=== PATIENT | female | born 1980 | race African-American/Black ===

== ENCOUNTER 2016-11-20 14:55 | Emergency (ER) | payer MEDICAID ==
[~2016-11-20] VITALS: Ht 154.9 cm; Wt 56.0 kg
[2016-11-20 16:28] VITALS: BP 124/76
--- NOTE | 2016-11-20 17:23 | NUR ---
PATIENT PRESENTS TO ED WITH RIGHT KNEE PAIN . PT STATES . DENIES N/V/D; SKIN IS PINK/WARM/DRY; AAOX4 WITH EVEN AND STEADY GAIT; LUNGS CLEAR BL; HR EVEN AND REGULAR; PT DENIES ANY FEVER, CP, SOB, OR COUGH AT THIS TIME; PATIENT STATES PAIN OF 10/10 AT THIS TIME; VSS; PATIENT POSITIONED FOR COMFORT; HOB ELEVATED; BEDRAILS UP X2; BED DOWN. ER MD MADE AWARE OF PT STATUS.
--- NOTE | 2016-11-20 17:23 | NUR ---
PATIENT TO ER OF1.
--- NOTE | 2016-11-20 17:35 | NUR ---
PATIENT BEING EVALUATED BY DR. GARCIA.
--- NOTE | 2016-11-20 17:45 | NUR ---
PATIENT TAKEN TO XR FOR RT. KNEE XR VIA WHEELCHAIR
--- NOTE | 2016-11-20 17:58 | NUR ---
PATIENT BACK FROM XR
--- NOTE | 2016-11-20 18:04 | NUR ---
PATIENT BEING REASSESSED BY ERMD IN OF. PATIENT AMBULATE WITH A LIMP BEING ASSESSED BY ERMD.
--- NOTE | 2016-11-20 18:23 | NUR ---
CRUTCH WALKING BY EMT.KNEE BRACE APPLIED RT. KNEE BY EMT
[2016-11-20 18:27] VITALS: BP 123/75
--- NOTE | 2016-11-20 18:27 | NUR ---
PATIENT ASSISTED VIA W/C TO HER CAR
--- NOTE | 2016-11-20 18:27 | NUR ---
Patient discharged with v/s stable. Written and verbal after care instructions given and explained. Patient alert, oriented and verbalized understanding of instructions. Ambulatory with to home. All questions addressed prior to discharge. ID band removed. Patient advised to follow up with PMD. Rx of NAPROSYN given. Patient educated on indication of medication including possible reaction and side effects. Opportunity to ask questions provided and answered.
== END 2016-11-20 18:27 | disposition home or self-care (01) ==
LOC: MED 14:55
DX: M25.561 Pain in right knee (principal)
CPT/HCPCS: 29105; 73562; 99284

== ENCOUNTER 2019-09-04 12:48 | Emergency (ER) | payer MEDICAID ==
[~2019-09-04] VITALS: Ht 154.9 cm; Wt 52.2 kg
[2019-09-04 12:49] VITALS: BP 115/78
--- NOTE | 2019-09-04 12:56 | NUR ---
Patient ambulated to bed 4. RN evaluating patient at bedside.
[2019-09-04 13:12] VITALS: BP 115/78
--- NOTE | 2019-09-04 13:13 | NUR ---
Patient discharged with v/s stable. Written and verbal after care instructions given and explained. Patient verbalized understanding. Ambulatory with steady gait. All questions addressed prior to discharge. Advised to follow up with PMD.
== END 2019-09-04 13:13 | disposition home or self-care (01) ==
LOC: MED 12:48
DX: H61.22 Impacted cerumen, left ear (principal); D64.9 Anemia, unspecified; Z98.890 Other specified postprocedural states
CPT/HCPCS: 99282

== ENCOUNTER 2019-11-27 15:24 | Emergency (ER) | payer MEDICAID ==
[~2019-11-27] VITALS: Ht 154.9 cm; Wt 63.5 kg
[2019-11-27 15:32] VITALS: BP 108/85
--- NOTE | 2019-11-27 15:37 | NUR ---
PT AMBULATED TO ER BED 11
--- NOTE | 2019-11-27 15:44 | NUR ---
38 Y/O F C/C LOWER BACK PAIN X 3 WEEKS. PER PT DOES NOT RECALL REASON FOR INJURY, DENIES RECENT TRAUMA/INJURIES/BENDING/LIFTING/TWISTING//DYSURIA. TAKEN TYLENOL WITH NO RELIEF. NKA. HX CHRONIC BACK PAIN. NO RX. NO NVD. SIDE RAIL X1. PT PRESENTS A/OX4,AMBULATORY,EUPNIC,VSS.
--- NOTE | 2019-11-27 18:36 | NUR ---
PT RESTING IN BED, SIDE RAIL X1
[2019-11-27] MEDS ORDERED: cefTRIAXone 250 MG in LIDOCAINE MPF 1% 0.9 ML IM ONE (18:45)
[2019-11-27 18:47] LABS: APPEARANCE,URINE HAZY (CLEAR); BILIRUBIN,URINE NEGATIVE (NEGATIVE); BLOOD, URINE NEGATIVE (NEGATIVE); COLOR,URINE YELLOW (YELLOW); LEUKOCYTE ESTERASE ,URINE NEGATIVE (NEGATIVE); NITRITE, URINE POSITIVE (NEGATIVE); UGLUCOSE NEGATIVE (NEGATIVE)
[2019-11-27] MEDS ORDERED: cefTRIAXone 250 MG VIAL ONE (18:47)
[2019-11-27] MEDS ORDERED: LIDOCAINE MPF 1% 5 ML ONE (18:47)
[2019-11-27 18:55] VITALS: BP 126/72
[2019-11-27 18:55] LABS: RBC,URINE 0-5 /HPF (0-5)
--- NOTE | 2019-11-27 18:55 | NUR ---
Patient discharged with v/s stable. Written and verbal after care instructions given and explained. Patient alert, oriented and verbalized understanding of instructions. Ambulatory with steady gait. All questions addressed prior to discharge. ID band removed. Patient advised to follow up with PMD. Rx of NITROFURANTOIN given. Patient educated on indication of medication including possible reaction and side effects. Opportunity to ask questions provided and answered.
== END 2019-11-27 18:55 | disposition home or self-care (01) ==
LOC: MED 15:24
DX: N39.0 Urinary tract infection, site not specified (principal)
CPT/HCPCS: 81001; 81025; 87086; 87186; 96372; 99283; J0696; J2001